=== PATIENT | male | born 1995 | race Two or more races ===

== ENCOUNTER 2021-02-16 04:21 | Emergency (ER) | payer SELFPAY ==
[~2021-02-16] VITALS: Ht 177.8 cm; Wt 149.2 kg
[2021-02-16 06:08] LABS: Urine Bacteria NONE SEEN /hpf (None Seen); Urine Blood 3+ /uL (Negative); Urine Mucus FEW (None Seen); Urine Specific Gravity 1.016 (1.001-1.035); Urine WBC 177 /hpf (0 - 3); Urine WBC Clumps PRESENT /hpf (None Seen)
[2021-02-16 07:27] VITALS: BP 140/92
[2021-02-16] MEDS ORDERED: cefTRIAXone SOD 1,000 MG VL IM ONE (07:45)
[2021-02-16] MEDS ORDERED: KETOROLAC TROMETH 60MG/2ML VIAL IM ONE (07:45)
== END 2021-02-16 09:35 | disposition home or self-care (01) ==
LOC: ER 04:21
DX: N20.1 Calculus of ureter (principal); N39.0 Urinary tract infection, site not specified; K76.0 Fatty (change of) liver, not elsewhere classified; E66.01 Morbid (severe) obesity due to excess calories; Z68.42 Body mass index [BMI] 45.0-49.9, adult
CPT/HCPCS: 74176; 81001; 96372; 99284; J0696; J1885